=== PATIENT | female | born 1990 | race Asian ===

== ENCOUNTER 2023-03-09 09:58 | Emergency (ER) | payer MEDICAID ==
[~2023-03-09] VITALS: Ht 170.2 cm; Wt 75.0 kg
[2023-03-09 13:53] LABS: GC DNA AMPLIFICATION NEGATIVE (NEGATIVE)
[2023-03-09] MEDS ORDERED: KETOROLAC 30 MG/ML 1ML VIAL IV ONE (14:10)
[2023-03-09] MEDS ORDERED: ONDANSETRON 4MG 2ML VIAL IV ONE (14:10)
[2023-03-09] MEDS ORDERED: NS 1,000 ML IV ONE (14:10)
[2023-03-09 14:56] LABS: BASO % 0.4 % (0.0-1.0); EOS # 0.2 10^3/uL (0.0-0.5); HEMATOCRIT 40.1 % (36.0-47.0); HEMOGLOBIN 12.4 g/dl (12.0-15.5); LYMPH % 37.4 % (24.0-44.0); MEAN CORPUSCULAR HEMOGLOBIN 22.5 pg (27.0-33.0); MEAN CORPUSCULAR HGB CONC 30.9 g/dl (32.0-36.5); MEAN CORPUSCULAR VOLUME 72.9 fl (80.0-96.0); MONO # 0.6 10^3/uL (0.0-0.8); MONO % 7.9 % (2.0-8.0); NEUTROPHILS # 4.1 10^3/uL (1.5-8.5); NEUTROPHILS % 51.9 % (36.0-66.0); PLATELET COUNT, AUTOMATED 450 10^3/uL (150-450); WHITE BLOOD COUNT 7.9 10^3/uL (4.0-10.0)
[2023-03-09 15:41] LABS: LIPASE 36 U/L (12-53)
[2023-03-09 15:43] LABS: ALKALINE PHOSPHATASE 53 U/L (46-116); ALT/SGPT 19 U/L (7.0-40); AST/SGOT 16 U/L (<34); BILIRUBIN,DIRECT 0.1 MG/DL (<0.4); BILIRUBIN,TOTAL 0.5 MG/DL (0.3-1.2); BLOOD UREA NITROGEN 9 MG/DL (9-23); CALCIUM LEVEL 9.6 MG/DL (8.5-10.1); CARBON DIOXIDE LEVEL 28 MMOL/L (20-31); CHLORIDE LEVEL 104 MMOL/L (98-107); CREATININE FOR GFR 0.78 MG/DL (0.55-1.30); GLOMERULAR FILTRATION RATE > 60.0 (>60); GLUCOSE, FASTING 83 MG/DL (60-100); POTASSIUM SERUM 4.4 MMOL/L (3.5-5.1); SODIUM LEVEL 136 MMOL/L (136-145); TOTAL PROTEIN 7.8 G/DL (5.7-8.2)
[2023-03-09 15:48] LABS: HCG, SERUM QUALITATIVE NEGATIVE (NEGATIVE)
[2023-03-09] MEDS ORDERED: ISOVUE-370 76% 100ML VIAL As Ordered ONE (17:31)
[2023-03-09] MEDS ORDERED: MIRA3350 PO (19:56)
[2023-03-09 20:17] VITALS: BP 139/67; TEMP 98.6; O2SAT 100
== END 2023-03-09 20:35 | disposition home or self-care (01) ==
LOC: M ED 09:58
DX: R10.9 Unspecified abdominal pain (principal); K59.00 Constipation, unspecified; F10.10 Alcohol abuse, uncomplicated; Z79.899 Other long term (current) drug therapy
CPT/HCPCS: 74176; 76830; 76856; 80048; 80076; 81001; 83690; 84702; 84703; 85025; 87210; 87661; 87810; 87850; 93976; 96361; 96374; 99284; J1885; J2405